=== PATIENT | male | born 1995 | race Hispanic/Latino ===

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

== ENCOUNTER 2017-07-28 15:19 | Emergency (ER) | payer OTHER ==
[2017-07-28] MEDS ORDERED: Pseudoephedrine HCl 30 MG TAB ONE (16:19)
== END 2017-07-28 16:32 | disposition home or self-care (01) ==
LOC: MADERS 15:19
DX: J01.90 Acute sinusitis, unspecified (principal); E66.9 Obesity, unspecified; J45.909 Unspecified asthma, uncomplicated; Z79.51 Long term (current) use of inhaled steroids
CPT/HCPCS: 99283

== ENCOUNTER 2017-09-29 21:21 | Emergency (ER) | payer OTHER ==
[2017-09-29] MEDS ORDERED: methylPREDNISolone Sod Succ/PF 125 MG/2 ML VIAL ONE (21:36)
[2017-09-29] MEDS ORDERED: EPINEPHrine 1 MG/ML AMP ONE (21:37)
[2017-09-29] MEDS ORDERED: Sterile Water 10 ML ONE (21:37)
--- NOTE | 2017-09-29 22:11 | RAD ---
FRONTAL RADIOGRAPH CHEST: Date: 09-29-17 Comparison: None. History: Cough. FINDINGS: No pneumothorax or pleural fluid. No focal consolidation or alveolar edema. IMPRESSION: No acute findings. POS: [facility]
== END 2017-09-29 22:17 | disposition home or self-care (01) ==
LOC: MADERS 21:21
DX: J20.9 Acute bronchitis, unspecified (principal); J45.909 Unspecified asthma, uncomplicated; Z79.899 Other long term (current) drug therapy
CPT/HCPCS: 71045; 96372; A4216; J0171; J2930; J7620

== ENCOUNTER 2019-10-24 21:13 | Emergency (ER) | payer OTHER ==
[2019-10-24] MEDS ORDERED: methylPREDNISolone Sod Succ/PF 125 MG/2 ML VIAL ONE (22:07)
[2019-10-24] MEDS ORDERED: Ibuprofen 800 MG TAB ONE (22:07)
[2019-10-24] MEDS ORDERED: Acetaminophen 500 MG TAB ONE (22:07)
[2019-10-24] MEDS ORDERED: Sodium Chloride 0.9% 1,000 ML ONE (22:07)
--- NOTE | 2019-10-24 22:19 | RAD ---
EXAM: Single view of the chest HISTORY: Cough COMPARISON: 09/29/2017 FINDINGS: Single view of the chest shows an enlarged cardiomediastinal silhouette. Bilateral pulmona ry vascular congestion is seen. There is no evidence of consolidation, mass, or pleural effusion. The bones are unremarkable IMPRESSION: Cardiomegaly and bilateral pulmonary vascular congestion may be secondary to congestive h eart failure.
[2019-10-24 23:15] LABS: ALT (SGPT) 26 U/L (8-55); AST (SGOT) 23 U/L (5-34); Albumin 3.8 g/dL (3.5-5.0); Alkaline Phosphatase 56 U/L (40-110); Anion Gap 14 mmol/L (10-20); BUN (Urea Nitrogen) 7 mg/dL (8.9-20.6); Bilirubin, Total 0.4 mg/dL (0.2-1.2); CK (CPK) 347 U/L (30-200); Calc. Creatinine Clearance 0 mL/min (70-130); Calcium 8.4 mg/dL (7.8-10.44); Carbon Dioxide 23 mmol/L (22-29); Chloride 104 mmol/L (98-107); Estimated GFR-MDRD 90; Globulin 3.4 g/dL (2.4-3.5); Glucose 146 mg/dL (70-105); Potassium 3.8 mmol/L (3.5-5.1); Protein, Total 7.2 g/dL (6.0-8.3); Sodium 137 mmol/L (136-145)
[2019-10-24 23:27] LABS: Hemoglobin 15.1 g/dL (14.0-18.0); Mean Corpuscular Hemoglobin 27.2 pg (27.0-31.0); Mean Platelet Volume 11.3 fL (7.4-10.4); Platelet Count 136 thou/uL (130-400); RBC Distribution Width 12.2 % (11.5-14.5); Red Blood Cell (RBC) Count 5.55 mill/uL (4.70-6.10); White Blood Cell (WBC) Count 2.9 thou/uL (4.8-10.8)
[2019-10-24 23:28] LABS: #Basophils 0.1 thou/uL (0.0-0.2); #Lymphocytes 0.7 thou/uL (1.20-3.40); #Monocytes 0.4 thou/uL (0.11-0.59); #Neutrophils 1.6 thou/uL (1.40-6.50); %Eosinophils 1.1 % (0.0-10.0); %Lymphocytes 25.4 % (21.0-51.0); %Monocytes 13.9 % (0.0-10.0); %Neutrophils 54.6 % (42.0-75.0)
[2019-10-26 15:20] LABS: SARS-CoV-2 MS2 Positive; SARS-CoV-2 N Gene Positive; SARS-CoV-2 S Gene Positive; SARS-CoV-2 by NAA DETECTED (NotDetected); SARS-CoV-2 orf1ab Positive
== END 2019-10-24 23:50 | disposition home or self-care (01) ==
LOC: MADERS 21:13
DX: U07.1 COVID-19 (principal); J20.8 Acute bronchitis due to other specified organisms
CPT/HCPCS: 36415; 71045; 80053; 82550; 83605; 84484; 85025; 87635; 87804; 96372; J2930; J7050; U0003

== ENCOUNTER 2019-10-27 13:51 | Emergency (ER) | payer OTHER, SELFPAY ==
[2019-10-27] MEDS ORDERED: Enoxaparin Sodium 100 MG/ML SYRINGE ONE (14:38)
[2019-10-27] MEDS ORDERED: Dexamethasone 10 MG/ML VIAL ONE (14:38)
[2019-10-27] MEDS ORDERED: Sodium Chloride 0.9% 250 ML 250 ML ONE (14:38)
[2019-10-27] MEDS ORDERED: cefTRIAXone\\ROCEPHIN 1 GM VIAL ONE (14:38)
[2019-10-27] MEDS ORDERED: Azithromycin 500 MG VIAL ONE (14:38)
[2019-10-27] MEDS ORDERED: Sodium Chloride 0.9% 100 ML ONE (14:38)
[2019-10-27 15:12] LABS: #Basophils 0.1 thou/uL (0.0-0.2); #Lymphocytes 1.1 thou/uL (1.20-3.40); #Monocytes 0.4 thou/uL (0.11-0.59); #Neutrophils 5.1 thou/uL (1.40-6.50); %Basophils 0.9 % (0.0-1.0); %Monocytes 5.5 % (0.0-10.0); %Neutrophils 76.6 % (42.0-75.0); Hemoglobin 15.2 g/dL (14.0-18.0); Mean Corpuscular HGB CONC 31.6 g/dL (32.0-36.0); Mean Corpuscular Hemoglobin 26.8 pg (27.0-31.0); Mean Corpuscular Volume 84.8 fL (78.0-98.0); Mean Platelet Volume 10.1 fL (7.4-10.4); Platelet Count 173 thou/uL (130-400); RBC Distribution Width 12.2 % (11.5-14.5); Red Blood Cell (RBC) Count 5.67 mill/uL (4.70-6.10); White Blood Cell (WBC) Count 6.6 thou/uL (4.8-10.8)
--- NOTE | 2019-10-27 15:24 | RAD ---
Chest one view HISTORY: Dyspnea. COVID positive. : 10/24/2019. FINDINGS: Cardiac silhouette is magnified by projection. Shallow inspiration accentuates pulmonary ma rkings. Mediastinum is midline. No lobar consolidation is. Given the overlying soft tissue density and pulmonary vascular congestion, groundglass parenchymal infiltrate could easily be obscured. No evidence of pneumothorax. IMPRESSION : Appearance of pulmonary vascular congestion. No infiltrates are reliably demonstrated. Given the vascular congestion and the overlying soft tissue density, a subtle groundglass infiltrate associated with COVID pneumonitis could be obscured.
[2019-10-27 15:25] LABS: ALT (SGPT) 22 U/L (8-55); AST (SGOT) 23 U/L (5-34); Alkaline Phosphatase 56 U/L (40-110); Anion Gap 16 mmol/L (10-20); BUN (Urea Nitrogen) 10 mg/dL (8.9-20.6); Bilirubin, Total 0.7 mg/dL (0.2-1.2); CRP (Inflammatory) 15.56 mg/dL (= or < 0.5); Calc. Creatinine Clearance 0 mL/min (70-130); Calcium 8.6 mg/dL (7.8-10.44); Carbon Dioxide 25 mmol/L (22-29); Chloride 101 mmol/L (98-107); Estimated GFR-MDRD Greater than 90; Glucose 129 mg/dL (70-105); Potassium 3.7 mmol/L (3.5-5.1); Sodium 138 mmol/L (136-145)
== END 2019-10-27 17:21 | disposition short-term general hospital (02) ==
LOC: MADERS 13:51
DX: U07.1 COVID-19 (principal); J45.909 Unspecified asthma, uncomplicated; Z79.899 Other long term (current) drug therapy
CPT/HCPCS: 36415; 71045; 80053; 82550; 82728; 83605; 84484; 85025; 85379; 86140; 87040; 93005; 96365; 96367; 96372; 96375; J0456; J0696; J1100; J1650; J3490; J7050

== ENCOUNTER 2020-11-26 07:14 | Emergency (ER) | payer OTHER ==
[2020-11-26] MEDS ORDERED: predniSONE 20 MG TAB ONE (08:37)
== END 2020-11-26 08:53 | disposition home or self-care (01) ==
LOC: MADERS 07:14
DX: J45.901 Unspecified asthma with (acute) exacerbation (principal); E66.9 Obesity, unspecified; Z79.899 Other long term (current) drug therapy
CPT/HCPCS: J7512; J7620

== ENCOUNTER 2021-03-20 06:26 | Emergency (ER) | payer OTHER | END 2021-03-20 07:00 | disposition left against medical advice (07) | LOC: MADERS 06:26 | DX: Z53.21 Procedure and treatment not carried out due to patient leaving prior to being seen by health care provider (principal) ==

== ENCOUNTER 2022-01-23 06:06 | Emergency (ER) | payer OTHER, SELFPAY ==
[2022-01-23 06:51] LABS: #Basophils 0.2 thou/uL (0.0-0.2); #Eosinphils 0.3 thou/uL (0.0-0.7); #Lymphocytes 3.3 thou/uL (1.20-3.40); #Monocytes 0.5 thou/uL (0.11-0.59); #Neutrophils 5.2 thou/uL (1.40-6.50); %Basophils 1.7 % (0.0-1.0); %Eosinophils 3.6 % (0.0-10.0); %Lymphocytes 35.4 % (21.0-51.0); %Monocytes 4.8 % (0.0-10.0); %Neutrophils 54.5 % (42.0-75.0); Hemoglobin 15.7 g/dL (14.0-18.0); Mean Corpuscular HGB CONC 31.5 g/dL (32.0-36.0); Mean Corpuscular Hemoglobin 27.3 pg (27.0-31.0); Mean Corpuscular Volume 86.5 fl (78.0-98.0); Platelet Count 135 thou/uL (130-400); RBC Distribution Width 11.8 % (11.5-14.5); Red Blood Cell (RBC) Count 5.78 mill/uL (4.70-6.10); White Blood Cell (WBC) Count 9.4 thou/uL (4.8-10.8)
[2022-01-23] MEDS ORDERED: Ketorolac Tromethamine 30 MG/ML VIAL ONE (06:54)
[2022-01-23 07:04] LABS: Anisocytosis SLIGHT = 6-15 cells (100X) (0-5/hpf); Platelet Morphology Comment Appears Adequate
[2022-01-23 07:05] LABS: ALT (SGPT) 18 U/L (8-55); AST (SGOT) 15 U/L (5-34); Albumin 4.2 g/dL (3.5-5.0); Alkaline Phosphatase 63 U/L (40-110); Anion Gap 15 mmol/L (10-20); BUN (Urea Nitrogen) 11 mg/dL (8.9-20.6); Bilirubin, Total 0.4 mg/dL (0.2-1.2); Calc. Creatinine Clearance 0 mL/min (70-130); Calcium 9.8 mg/dL (7.8-10.44); Carbon Dioxide 23 mmol/L (22-29); Chloride 106 mmol/L (98-107); Estimated GFR 127; Globulin 3.8 g/dL (2.4-3.5); Glucose 94 mg/dL (70-105); Lipase 19 U/L (8-78); Potassium 4.3 mmol/L (3.5-5.1); Sodium 140 mmol/L (136-145)
== END 2022-01-23 08:15 | disposition home or self-care (01) ==
LOC: MADERS 06:06
DX: R29.898 Other symptoms and signs involving the musculoskeletal system (principal); R10.811 Right upper quadrant abdominal tenderness; I10 Essential (primary) hypertension; J45.909 Unspecified asthma, uncomplicated; E66.9 Obesity, unspecified
CPT/HCPCS: 71045; 80053; 83690; 85025; 96374; J1885

== ENCOUNTER 2023-05-07 08:36 | Emergency (ER) | payer SELFPAY | END 2023-05-07 10:05 | disposition home or self-care (01) | LOC: MADERS 08:36 | DX: S83.91XA Sprain of unspecified site of right knee, initial encounter (principal); J45.909 Unspecified asthma, uncomplicated; I10 Essential (primary) hypertension; X50.9XXA Other and unspecified overexertion or strenuous movements or postures, initial encounter ==